=== PATIENT | female | born 1990 | race Caucasian/White ===

== ENCOUNTER → 2021-03-07 | Outpatient (CLI) | payer OTHER ==
--- NOTE | 2021-03-07 17:34 | RAD ---
EXAM: Pelvic sonogram. HISTORY: Menorrhagia.. Dysmenorrhea. TECHNIQUE: Transabdominal and transvaginal sonographic imaging of the pelvis was performed. COMPARISON: None. FINDINGS: The uterus measures 9.1 x 5.0 x 3.9 cm. The endometrial stripe measures 1.4 cm in thickness . There is a suspected fibroid within the right posterior uterine fundus measuring 1.3 cm. The ovarie s are normal in size and demonstrate normal blood flow. There are multiple ovarian follicles. The fol licles on the right appear to be in a predominantly peripheral distribution. There is heterogeneous e chogenicity within the lower uterine segment likely due to prominent endocervical glands. There is tr gallo free fluid within the cul-de-sac. There is trace fluid within the cervical canal. IMPRESSION: 1. Prominent endometrial stripe measuring 1.4 cm in thickness. Correlate with the phase the patient's menstrual cycle. 2. Multiple ovarian follicles, the right of which are in a predominant a peripheral distribution. Thi s can be seen with polycystic ovary syndrome. However, the absence of this finding on the contralater al ovary does not favor polycystic ovary syndrome. 3. Suspected prominent endocervical glands near the lower uterine segment. No cervical mass is seen. There is a small amount of fluid within the cervical canal. This may be due to blood products. 4. Small uterine fibroid measuring 1.3 cm. Electronically signed by: Alla Lindsay MD (03/07/2021 5:31 PM) [id number]
== END ==
LOC: US 15:56
PROVIDERS: ATTEND Obstetrics & Gynecology
DX: D25.9 Leiomyoma of uterus, unspecified (principal); N92.0 Excessive and frequent menstruation with regular cycle; N97.9 Female infertility, unspecified
CPT/HCPCS: 76830; 76856